=== PATIENT | male | born 1965 | race Caucasian/White ===

== ENCOUNTER 2018-06-16 12:55 | Emergency (ER) | payer MEDICARE ==
[2018-06-16] MEDS ORDERED: Ketorolac Tromethamine 60 MG/2 ML VIAL ONE (13:06)
--- NOTE | 2018-06-16 14:50 | RAD ---
RIGHT ELBOW 4 VIEWS: Date: 06/16/18 HISTORY: Elbow injury. 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 There is some spurring of the coronoid process. There is also a spur involving the olecranon and some minimal radiocapitellar joint space degenerative kolb ge. There does appear to be a small joint effusion. On the AP projection, along the more ulnar side o f the coronoid process, there is a small area of lucency. It is difficult to confirm this on the othe r views, but does raise the possibility there may be a subtle nondisplaced fracture given the presenc e of a joint effusion. IMPRESSION: Questionable small nondisplaced fracture of the coronoid process, there does appear to be a small sarwat nt effusion present. 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 POS: [facility]
--- NOTE | 2018-06-16 14:51 | RAD ---
RIGHT SHOULDER 2 VIEWS: Date: 06/16/18 HISTORY: Shoulder injury. FINDINGS: There are some mild arthritic changes of the AC joint. There are no signs of fracture or dislocation. IMPRESSION: No evidence of acute injury. POS: [facility]
== END 2018-06-16 13:50 | disposition home or self-care (01) ==
LOC: BURERS 12:55
DX: S52.024A Nondisplaced fracture of olecranon process without intraarticular extension of right ulna, initial encounter for closed fracture (principal); I25.2 Old myocardial infarction; E78.5 Hyperlipidemia, unspecified; F31.9 Bipolar disorder, unspecified; F17.210 Nicotine dependence, cigarettes, uncomplicated; W01.0XXA Fall on same level from slipping, tripping and stumbling without subsequent striking against object, initial encounter
CPT/HCPCS: 29105; 96372; J1885

== ENCOUNTER 2018-09-23 19:38 | Emergency (ER) | payer MEDICARE ==
[2018-09-23 20:15] LABS: #Basophils 0.1 thou/uL (0.0-0.2); #Eosinphils 0.1 thou/uL (0.0-0.7); #Lymphocytes 0.9 thou/uL (1.20-3.40); #Monocytes 0.8 thou/uL (0.11-0.59); #Neutrophils 4.4 thou/uL (1.40-6.50); %Basophils 1.9 % (0.0-1.0); %Eosinophils 0.9 % (0.0-10.0); %Lymphocytes 13.7 % (21.0-51.0); %Monocytes 12.4 % (0.0-10.0); %Neutrophils 71.2 % (42.0-75.0); Mean Corpuscular HGB CONC 33.1 g/dL (32.0-36.0); Mean Corpuscular Hemoglobin 28.1 pg (27.0-31.0); Mean Corpuscular Volume 84.7 fL (78.0-98.0); Mean Platelet Volume 7.1 fL (7.4-10.4); Platelet Count 212 thou/uL (130-400); RBC Distribution Width 12.1 % (11.5-14.5); Red Blood Cell (RBC) Count 5.34 mill/uL (4.70-6.10); White Blood Cell (WBC) Count 6.2 thou/uL (4.8-10.8)
[2018-09-23 20:28] LABS: ALT (SGPT) 79 U/L (8-55); AST (SGOT) 43 U/L (5-34); Albumin 4.4 g/dL (3.5-5.0); Alkaline Phosphatase 85 U/L (40-150); Anion Gap 13 mmol/L (10-20); BUN (Urea Nitrogen) 12 mg/dL (8.4-25.7); Bilirubin, Total 0.6 mg/dL (0.2-1.2); Calc. Creatinine Clearance 0 mL/min (70-130); Calcium 9.2 mg/dL (7.8-10.44); Carbon Dioxide 23 mmol/L (22-29); Chloride 106 mmol/L (98-107); Estimated GFR-MDRD 72; Globulin 2.7 g/dL (2.4-3.5); Glucose 112 mg/dL (70-105); Protein, Total 7.1 g/dL (6.0-8.3); Sodium 138 mmol/L (136-145)
[2018-09-23] MEDS ORDERED: Ibuprofen 200 MG TAB ONE (20:31)
[2018-09-23 21:02] LABS: Clarity Clear (Clear); Leukocyte Negative (Negative); Nitrite Negative (Negative)
[2018-09-23 21:03] LABS: Bilirubin Negative (Negative); Blood, Urine Negative (Negative); Glucose, Urine (Dipstick) Negative (Negative); Protein, Urine (Dipstick) Negative (Neg-Trace)
[2018-09-23] MEDS ORDERED: Azithromycin 250 MG TAB ONE (21:31)
--- NOTE | 2018-09-23 22:08 | RAD ---
CHEST TWO VIEWS: Date: 09-23-18 Comparison: 07-18-17 from [facility]. FINDINGS: The heart is normal in size. There is no major lobar infiltrate or effusion. Some of the lung marking s in the right lower lobe may be minimally prominent but not enough to diagnose definite disease. IMPRESSION: No definite acute findings. POS: HOME
--- NOTE | 2018-09-23 22:15 | CT ---
CT ANGIO OF THE CHEST: Date: 09-23-[address] of the chest was done after a bolus of IV contrast was given. Axial slices were acquired fo llowed by MIP reconstructions through the pulmonary arteries. This is a moderate sensitivity study for pulmonary embolism. Emboli in the [id number] sized branch es would be caught but more peripheral emboli would be missed. FINDINGS: There was no evidence of pulmonary emboli on this study. There was no sign of aortic aneurysm or diss ection. The coronary arteries fill and do not appear calcified. There is no pericardial effusion. No mediastinal mass or adenopathy was seen. There is no lobar infiltrate or effusion. The patient has several very small scattered benign appeari ng pulmonary nodules ranging in size from 2 to 7 mm. They are seen all the way back to 2013 scans. Th e largest measures about 7 mm in the superior segment of the right lower lobe. While it is a little m ore prominent in size and density than it was on a 2017 scan, on the 2013 scan it was closer to this size and density. There are a few smaller scattered nodules in both the right lower and right upper l obes. Scans into the upper abdomen showed diffuse fatty infiltration of the liver. No adrenal masses were s een. The visible upper abdominal structures showed no acute findings. IMPRESSION: 1. No evidence of pulmonary embolism. 2. Scattered subcentimeter nodules that are only marginally different than multiple prior scans. POS: HOME
== END 2018-09-23 21:39 | disposition home or self-care (01) ==
LOC: BURERS 19:38
DX: B34.9 Viral infection, unspecified (principal); I25.2 Old myocardial infarction; E78.5 Hyperlipidemia, unspecified; F31.9 Bipolar disorder, unspecified; F17.210 Nicotine dependence, cigarettes, uncomplicated; Z79.899 Other long term (current) drug therapy
CPT/HCPCS: 36415; 71046; 71275; 80053; 81003; 83605; 85025; 85379; 87040; 87086; 87804; 93005; 96360

== ENCOUNTER 2019-06-29 18:08 | Emergency (ER) | payer MEDICARE ==
[2019-06-29] MEDS ORDERED: Nitroglycerin 0.4 MG TAB 1 EACH ONE (18:13)
[2019-06-29] MEDS ORDERED: Aspirin Chewable 81 MG TAB ONE (18:13)
[2019-06-29] MEDS ORDERED: Ondansetron PF 4 MG/2 ML Vial ONE (18:23)
[2019-06-29] MEDS ORDERED: Fentanyl 100 MCG/2 ML VIAL ONE (18:23)
[2019-06-29] MEDS ORDERED: Nitroglycerin 2% Ointment 1 INCH/1 GM Packet ONE (18:41)
[2019-06-29 18:56] LABS: #Basophils 0.1 thou/uL (0.0-0.2); #Eosinphils 0.2 thou/uL (0.0-0.7); #Lymphocytes 3.1 thou/uL (1.20-3.40); #Monocytes 0.6 thou/uL (0.11-0.59); #Neutrophils 3.4 thou/uL (1.40-6.50); %Eosinophils 2.5 % (0.0-10.0); %Lymphocytes 42.2 % (21.0-51.0); %Monocytes 8.5 % (0.0-10.0); %Neutrophils 45.8 % (42.0-75.0); Hemoglobin 16.6 g/dL (14.0-18.0); Mean Corpuscular HGB CONC 32.9 g/dL (32.0-36.0); Mean Corpuscular Hemoglobin 28.4 pg (27.0-31.0); Mean Corpuscular Volume 86.4 fL (78.0-98.0); Mean Platelet Volume 7.5 fL (7.4-10.4); Platelet Count 244 thou/uL (130-400); RBC Distribution Width 11.9 % (11.5-14.5); Red Blood Cell (RBC) Count 5.83 mill/uL (4.70-6.10); White Blood Cell (WBC) Count 7.3 thou/uL (4.8-10.8)
[2019-06-29 19:08] LABS: ALT (SGPT) 47 U/L (8-55); AST (SGOT) 27 U/L (5-34); Albumin 4.7 g/dL (3.5-5.0); Alkaline Phosphatase 83 U/L (40-110); Anion Gap 14 mmol/L (10-20); BUN (Urea Nitrogen) 11 mg/dL (8.4-25.7); Bilirubin, Total 0.7 mg/dL (0.2-1.2); Calc. Creatinine Clearance 0 mL/min (70-130); Calcium 9.3 mg/dL (7.8-10.44); Carbon Dioxide 25 mmol/L (22-29); Chloride 106 mmol/L (98-107); Estimated GFR-MDRD 74; Globulin 2.4 g/dL (2.4-3.5); Glucose 114 mg/dL (70-105); Lipase 100 U/L (8-78); Potassium 4.3 mmol/L (3.5-5.1); Protein, Total 7.1 g/dL (6.0-8.3); Sodium 141 mmol/L (136-145)
--- NOTE | 2019-06-29 23:46 | RAD ---
PORTABLE CHEST: 06/29/19 An portable film at 832 is compared with a 10/24/18 study. The heart is normal in size and the lungs a re clear. There is no infiltrate, effusion, edema or congestion. IMPRESSION: No acute finding. POS: HOME
== END 2019-06-29 20:42 | disposition short-term general hospital (02) ==
LOC: BURERS 18:08
DX: I20.0 Unstable angina (principal); R11.0 Nausea; I25.2 Old myocardial infarction; E78.5 Hyperlipidemia, unspecified; F31.9 Bipolar disorder, unspecified; F17.210 Nicotine dependence, cigarettes, uncomplicated; Z79.899 Other long term (current) drug therapy
CPT/HCPCS: 71045; 80053; 83690; 83880; 84484; 85025; 93005; 96361; 96374; 96375; J2405; J3010

== ENCOUNTER 2019-07-22 12:14 | Emergency (ER) | payer MEDICARE ==
[2019-07-22] MEDS ORDERED: predniSONE 20 MG TAB ONE (12:51)
== END 2019-07-22 12:55 | disposition home or self-care (01) ==
LOC: BURERS 12:14
DX: J11.1 Influenza due to unidentified influenza virus with other respiratory manifestations (principal); J32.9 Chronic sinusitis, unspecified; I11.0 Hypertensive heart disease with heart failure; I50.9 Heart failure, unspecified; E78.5 Hyperlipidemia, unspecified; I25.2 Old myocardial infarction; F17.210 Nicotine dependence, cigarettes, uncomplicated
CPT/HCPCS: 99283; J7512

== ENCOUNTER 2021-04-03 13:30 | Emergency (ER) | payer MEDICARE ==
[2021-04-03] MEDS ORDERED: Cyclobenzaprine 10 MG TAB ONE ×2 (14:26→14:27)
[2021-04-03] MEDS ORDERED: Crotalidae Polyvalent Antivenin 1 GM VIAL ONE (14:26)
[2021-04-03] MEDS ORDERED: methylPREDNISolone Sod Succ/PF 125 MG/2 ML VIAL ONE (14:26)
[2021-04-03] MEDS ORDERED: Cyclobenzaprine 10 MG TAB PO SCH (14:45)
== END 2021-04-03 15:08 | disposition home or self-care (01) ==
LOC: BURERS 13:30
DX: S16.1XXA Strain of muscle, fascia and tendon at neck level, initial encounter (principal); S39.012A Strain of muscle, fascia and tendon of lower back, initial encounter; M50.31 Other cervical disc degeneration, high cervical region; I10 Essential (primary) hypertension; I25.2 Old myocardial infarction; F17.210 Nicotine dependence, cigarettes, uncomplicated; X58.XXXA Exposure to other specified factors, initial encounter
CPT/HCPCS: 72040; 96372; J0840; J2930

== ENCOUNTER 2022-04-03 23:06 | Emergency (ER) | payer OTHER, MEDICARE ==
[2022-04-03] MEDS ORDERED: Acetaminophen 500 MG TAB ONE (23:45)
[2022-04-03 23:46] LABS: #Basophils 0.1 thou/uL (0.0-0.2); #Eosinphils 0.2 thou/uL (0.0-0.7); #Lymphocytes 3.3 thou/uL (1.20-3.40); #Monocytes 0.6 thou/uL (0.11-0.59); #Neutrophils 4.3 thou/uL (1.40-6.50); %Basophils 1.4 % (0.0-1.0); %Eosinophils 1.9 % (0.0-10.0); %Lymphocytes 39.4 % (21.0-51.0); %Neutrophils 50.3 % (42.0-75.0); Hemoglobin 16.1 g/dL (14.0-18.0); Mean Corpuscular HGB CONC 33.7 g/dL (32.0-36.0); Mean Corpuscular Hemoglobin 29.2 pg (27.0-31.0); Mean Corpuscular Volume 86.6 fl (78.0-98.0); Mean Platelet Volume 7.2 fL (7.4-10.4); Platelet Count 254 10x3/uL (130-400); RBC Distribution Width 12.4 % (11.5-14.5); Red Blood Cell (RBC) Count 5.51 mill/uL (4.70-6.10); White Blood Cell (WBC) Count 8.5 10x3/uL (4.8-10.8)
[2022-04-04] LABS: ALT (SGPT) 32 U/L (8-55); AST (SGOT) 19 U/L (5-34); Albumin 4.1 g/dL (3.5-5.0); Alkaline Phosphatase 83 U/L (40-110); Anion Gap 14 mmol/L (10-20); BUN (Urea Nitrogen) 15 mg/dL (8.4-25.7); Bilirubin, Total 0.3 mg/dL (0.2-1.2); Calc. Creatinine Clearance 0 mL/min (70-130); Calcium 9.2 mg/dL (7.8-10.44); Carbon Dioxide 25 mmol/L (22-29); Chloride 105 mmol/L (98-107); Estimated GFR 71; Globulin 2.9 g/dL (2.4-3.5); Glucose 173 mg/dL (70-105); Potassium 3.9 mmol/L (3.5-5.1); Sodium 140 mmol/L (136-145)
[2022-04-04] MEDS ORDERED: Aspirin Chewable 81 MG TAB ONE (01:28)
== END 2022-04-04 04:00 | disposition short-term general hospital (02) ==
LOC: BURERS 23:06
DX: S06.0X0A Concussion without loss of consciousness, initial encounter (principal); E78.5 Hyperlipidemia, unspecified; I11.0 Hypertensive heart disease with heart failure; I50.9 Heart failure, unspecified; F17.210 Nicotine dependence, cigarettes, uncomplicated; X58.XXXA Exposure to other specified factors, initial encounter; Z79.899 Other long term (current) drug therapy
CPT/HCPCS: 70450; 71045; 80053; 83880; 84484; 85025; 93005; 94760